=== PATIENT | female | born 1995 ===

== ENCOUNTER 2020-11-02 09:25 | Inpatient (IN) | payer BC ==
[2020-11-02] MEDS: Lactated Ringers 1,000 ML IV SCH ×3 (09:50→11:50)
[2020-11-02] MEDS ORDERED: Ampicillin 2 GM in Sodium Chloride 0.9% 100 ML IV ONE (10:03)
[2020-11-02] MEDS ORDERED: Ondansetron 4 MG/2 ML SDV IVPUSH PRN (10:03)
[2020-11-02] MEDS ORDERED: Misoprostol 200 MCG Tab PO PRN (10:03)
[2020-11-02] MEDS ORDERED: Nalbuphine 10 MG/1 ML Vial IVPUSH PRN (10:03)
[2020-11-02] MEDS ORDERED: Methylergonovine 0.2 MG/1 ML Amp IM PRN (10:03)
[2020-11-02] MEDS ORDERED: Sodium Chloride 0.9% 10 ML Syringe FLUSH PRN (10:03)
[2020-11-02] MEDS ORDERED: Tranexamic Acid 1,000 MG in Sodium Chloride 0.9% 100 ML IV PRN (10:03)
[2020-11-02] MEDS ORDERED: Butorphanol 1 MG/ML SDV IVPUSH PRN (10:03)
[2020-11-02] MEDS ORDERED: Sodium Chloride 0.9% 10 ML SDV IV PRN (10:03)
[2020-11-02] MEDS ORDERED: Carboprost Tromethamine 250 MCG/1 ML Amp IM PRN (10:03)
[2020-11-02] MEDS ORDERED: Water For Irrigation,Sterile 1,000 ML Container IRR PRN (10:03)
[2020-11-02] MEDS ORDERED: Sodium Chloride 0.9% 2.5 ML Syringe FLUSH PRN (10:03)
[2020-11-02] MEDS ORDERED: Lidocaine 1% 50 ML MDV INJECT PRN (10:03)
[2020-11-02] MEDS ORDERED: Oxytocin/0.9 % Sodium Chloride 30 UNIT/500 ML BAG IV SCH ×2 (10:15→14:30)
[2020-11-02] MEDS ORDERED: Ropivacaine HCl/PF 100 ML ONE (11:38)
[2020-11-02] MEDS ORDERED: fentaNYL 100 MCG/2 ML SDV ONE (11:38)
--- NOTE | 2020-11-02 12:07 | PCM.PREANE ---
Preanesthetic Assessment - Procedure Proposed Procedure: Late entry, Pt assessed prior to epidural placement at 1110. - Anesthesia/Transfusion/Family Hx Anesthesia History: Prior Anesthesia Without Reaction (sinus surgery, nasal septal surgery, T&A, [place] teeth, no anesthesia complications) Family History of Anesthesia Reaction: No Transfusion History: No Prior Transfusion(s) Additional History: Pt reports a compressed disk, possibly lumbar. States it's mild with no radiculopathy. - Review of Systems General: No Symptoms Pulmonary: No Symptoms Cardiovascular: No Symptoms Gastrointestinal: No Symptoms Neurological: No Symptoms Other: Reports: None - Physical Assessment NPO Status Date: 11/01/20 (last food yesterday) NPO Status Time: 22:00 (Clear liquids only going forward) Height: 1.79 m Weight: 82.554 kg ASA Class: 2 Mental Status: Alert & Oriented x3 Airway Class: Mallampati = 2 Dentition: Reports: Normal Dentition Thyro-Mental Finger Breadths: 4 Mouth Opening Finger Breadths: 3 ROM/Head Extension: Full Lungs: Clear to Auscultation, Normal Respiratory Effort Cardiovascular: Regular Rate, Regular Rhythm - Lab Values: Laboratory Last Values WBC 16.13 K/uL (4.0-11.0) H 11/02/20 09:40 RBC 3.99 M/uL (4.30-5.90) L 11/02/20 09:40 Hgb 12.7 g/dL (12.0-16.0) 11/02/20 09:40 Hct 37.0 % (36.0-46.0) 11/02/20 09:40 MCV 92.7 fL (80.0-98.0) 11/02/20 09:40 MCH 31.8 pg (27.0-32.0) 11/02/20 09:40 MCHC 34.3 g/dL (31.0-37.0) 11/02/20 09:40 RDW Std Deviation 45.1 fl (28.0-62.0) 11/02/20 09:40 RDW Coeff of Christiano 13 % (11.0-15.0) 11/02/20 09:40 Plt Count 220 K/uL (150-400) 11/02/20 09:40 MPV 11.90 fL (7.40-12.00) 11/02/20 09:40 Nucleated RBC % 0.0 /100WBC 11/02/20 09:40 Nucleated RBCs # 0 K/uL 11/02/20 09:40 SARS-CoV-2 RNA (CORINA) NEGATIVE (NEGATIVE) 11/02/20 08:35 - Allergies Allergies/Adverse Reactions: Allergies Allergy/AdvReac Type Severity Reaction Status Date / Time No Known Allergies Allergy Verified 11/02/20 10:02 - Acknowledgements Anesthesia Type Planned: Epidural Pt an Appropriate Candidate for the Planned Anesthesia: Yes Alternatives and Risks of Anesthesia Discussed w Pt/Guardian: Yes Pt/Guardian Understands and Agrees with Anesthesia Plan: Yes Additional Comments: Discussed epidural risks, benefits, alternatives, procedure, maintenance, and anesthesia coverage with patient. All questions answered and concerns addressed. Consent signed with RN witness. PreAnesthesia Questionnaire - CURRENT (IN HOUSE) MEDS Current Meds: Current Medications Butorphanol Tartrate (Stadol) 1 mg IVPUSH Q1H PRN PRN Reason: Pain Carboprost Tromethamine (Hemabate Ds) 250 mcg IM ASDIRECTED PRN PRN Reason: Post Hemorrhage Oxytocin/Sodium Chloride (Oxytocin 30 Unit/500 Ml-Ns) 30 unit in 500 mls @ 999 mls/hr IV TITRATE [facility] Tranexamic Acid 1,000 mg/ (Sodium Chloride) 110 mls @ 660 mls/hr IV ONETIME PRN PRN Reason: Bleeding Ampicillin Sodium 1 gm/ Sodium (Chloride) 50 mls @ 100 mls/hr IV Q4H [facility] Lactated Ringer's (Ringers, Lactated) 1,000 mls @ 150 mls/hr IV ASDIRECTED [facility] Last Admin: 11/02/20 10:40 Dose: 999 mls/hr Documented by: Lidocaine HCl (Xylocaine 1%) 50 ml INJECT ONETIME PRN PRN Reason: Laceration repair Methylergonovine Maleate (Methergine) 0.2 mg IM ASDIRECTED PRN PRN Reason: Post Hemorrhage Misoprostol (Cytotec) 200 mcg PO ONETIME PRN PRN Reason: Post Hemorrhage Nalbuphine HCl (Nubain) 10 mg IVPUSH Q1H PRN PRN Reason: Pain (severe 7-10) Ondansetron HCl (Zofran) 4 mg IVPUSH Q6H PRN PRN Reason: Nausea/Vomiting Sodium Chloride (Saline Flush) 10 ml FLUSH ASDIRECTED PRN PRN Reason: Keep Vein Open Sodium Chloride (Saline Flush) 2.5 ml FLUSH ASDIRECTED PRN PRN Reason: Keep Vein Open Sodium Chloride (Normal Saline) 10 ml IV ASDIRECTED PRN PRN Reason: IV Use Sterile Water (Sterile Water For Irrigation) 1,000 ml IRR ASDIRECTED PRN PRN Reason: delivery Discontinued Medications Fentanyl (Sublimaze) Confirm Administered Dose 200 mcg .ROUTE .STK-MED ONE Stop: 11/02/20 11:39 Ampicillin Sodium 2 gm/ Sodium (Chloride) 100 mls @ 200 mls/hr IV ONETIME ONE Stop: 11/02/20 10:32 Last Admin: 11/02/20 10:30 Dose: 200 mls/hr Documented by: Ropivacaine (Naropin 0.2%) Confirm Administered Dose 100 mls @ as directed .ROUTE .STK-MED ONE Stop: 11/02/20 11:39
--- NOTE | 2020-11-02 12:17 | PCM.SN.2 ---
- Free Text/Narrative Note: Anesthesia time [id number] Continuous labor epidural 1110- Bedside LDR 2, physical assessment and medical history with pt cooperation, consent signed with RN witness. 1120- Time out, BP, O2 NC, and pulse ox. on, sitting position. Sterile prep. with chlorhexidine, sterile drape. Sterile gloves, hat. 1127- Attempt #1 successful at L3-4, GLORIA with saline at 5.5 cm, catheter threaded to 10cm. No paresthesias. 1129- Negative to aspiration for both heme and CSF. Test dose negative. 1132- Secured with sterile tegaderm and cloth tape. 1144- Bolus with 8ml Ropivicaine 0.2% with 2mcg/ml fentanyl 1146- Continuous infusion started. Ropivicaine 0.2% with 2mcg/ml fentanyl at 8ml/hr, 4ml bolus 1200- level assessed, T12 with continued discomfort. 6ml clinician bolus. 1214- Reassessed, T9 Level and reports adequate pain control. VSS.
[2020-11-02] MEDS ORDERED: Ampicillin 1 GM in Sodium Chloride 0.9% 50 ML IV SCH (14:15)
[2020-11-02] MEDS ORDERED: Terbutaline 1 MG/ML SDV SUBCUT PRN (14:29)
[2020-11-02] MEDS ORDERED: Ibuprofen 400 MG Tab PO PRN (16:26)
[2020-11-02] MEDS ORDERED: oxyCODONE 5 MG Tab PO PRN (16:26)
[2020-11-02] MEDS ORDERED: Ibuprofen 800 MG Tab PO PRN (16:26)
[2020-11-02] MEDS ORDERED: Bisacodyl 10 MG Supp RECTAL PRN (16:26)
[2020-11-02] MEDS ORDERED: Lanolin 100% Cream 7 GM Tube TOP PRN (16:26)
[2020-11-02] MEDS ORDERED: Acetaminophen 500 MG Tab PO PRN (16:26)
--- NOTE | 2020-11-02 16:35 | PCM.OPNOTE ---
- General Post-Op/Procedure Note Date of Surgery/Procedure: 11/02/20 Operative Procedure(s): /2nd MLL repaired Findings: Viable female APGARs 8, 9 weight 3380 gm. Spontaneous delivery intact placenta with 3V cord Pre Op Diagnosis: 37/6 week IUP. SROM. GBBS + Post-Op Diagnosis: Same Anesthesia Technique: Epidural Primary Surgeon: Catherine Holbrook EBL in mLs: 300 Complications: none known Condition: Good Free Text/Narrative:: Dictation [id number]
[2020-11-02] MEDS: Acetaminophen 500 MG Tab PO PRN ×2 (17:23→23:40)
[2020-11-02] MEDS: Witch Hazel Medicated Pads 40/Jar TOP PRN (17:26)
[2020-11-02] MEDS: Benzocaine/Menthol 20%-0.5% Spray 78 GM Cannister TOP PRN (17:27)
--- NOTE | 2020-11-02 19:42 | OR ---
SURGEON: Catherine Holbrook M.D. DATE OF PROCEDURE: 11/02/2020 PREOPERATIVE DIAGNOSES: 1. A 37-6/7 weeks' intrauterine . 2. Spontaneous rupture of membranes. 3. Group B strep positive. POSTOPERATIVE DIAGNOSES: 1. A 37-6/7 weeks' intrauterine . 2. Spontaneous rupture of membranes. 3. Group B strep positive. PROCEDURE: Spontaneous vaginal delivery, second-degree midline laceration repaired. PRIMARY SURGEON: Catherine Holbrook MD ANESTHESIA: Epidural. ESTIMATED BLOOD LOSS: 300 mL. COMPLICATIONS: None known. FINDINGS: Viable female. score of 8 at one minute and 9 at five minutes. Weight of 3280 g. Spontaneous delivery, intact placenta, 3-vessel cord. DISPOSITION: to nursery, mom in LDRP. PROCEDURE DETAILS: Milagro is a 25-year-old, G1, P0, at 37-6/7 weeks' gestational age, who presented on the morning of 11/02/2020 with ruptured membranes shortly after 6 a.m., clear fluid had been returned. Upon her presentation, she was found to be grossly ruptured. heart tones category 1. She was found to be 3 cm, 80% effaced, minus 2 station. Therefore, she was admitted, routine labs drawn, IV hydration was initiated. She is COVID negative. The patient was admitted, and she received ampicillin prophylaxis for group B strep positive status. The patient became increasingly uncomfortable, progressed fairly quickly to 8 cm. Underwent regional anesthesia in the form of epidural, became more comfortable, and progressed to complete. Shortly after noon, 0 station. She attempted initial pushing efforts, however, was not very successful, so allowed her to become more comfortable with her epidural and continue to labor. During this time, the contractions did seem to space out somewhat, so therefore Pitocin augmentation was initiated. Shortly before 3 p.m. She had regular contractions, feeling increased pressure, was found to be +2 station, began pushing efforts. The patient pushed adequately, was able to deliver to a +3 station. I was called for delivery. Upon my arrival, the patient was placed in modified dorsal lithotomy position, prepped and draped in usual aseptic manner. Continued with pushing efforts, able to deliver the infant's head atraumatically spontaneously, followed by anterior shoulder, posterior shoulder, and remainder of the body without difficulty. The 's oropharynx and nares were bulb suctioned. Cord was clamped x2 and cut. Infant was handed off to attending nursery staff. Cord arterial, cord venous, cord blood sampling obtained. Light pressure was applied while the placenta was delivered spontaneously intact. Vigorous fundal uterine massage was then applied while 30 units of Pitocin was delivered in 500 mL of IV fluid. Upon inspection of cervix, vaginal sidewall, and perineum, there was found to be a second-degree midline laceration. This was repaired using 3-0 Vicryl in the usual fashion. Hemostasis appeared evident. Sponge count, instrument count, and needle count were correct. The patient remained in LDRP, infant to nursery. JIMENEZ / KIRAN /[id number] MTDD
[2020-11-02] MEDS: Docusate Sodium 100 MG Cap PO PRN (21:51)
[2020-11-03] MEDS: Acetaminophen 500 MG Tab PO PRN ×3 (06:03→17:31)
--- NOTE | 2020-11-03 08:17 | PCM.PNPP ---
- General Info Date of Service: 11/03/20 Functional Status: Reports: Pain Controlled, Tolerating Diet, Ambulating, Urinating - Review of Systems General: Reports: Fatigue. Denies: Fever, Weakness Pulmonary: Denies: Shortness of Breath Cardiovascular: Denies: Chest Pain, Palpitations, Lightheadedness Gastrointestinal: Denies: Abdominal Pain, Nausea, Vomiting Genitourinary: Denies: Flank Pain Musculoskeletal: Reports: No Symptoms Skin: Reports: No Symptoms Neurological: Reports: No Symptoms Psychiatric: Reports: No Symptoms - General Info Date of Service: 11/03/20 - Patient Data Vital Signs - Most Recent: Last Vital Signs Temp 36.4 C 11/03/20 06:00 Pulse 83 11/03/20 06:00 Resp 17 11/03/20 06:00 BP 118/59 L 11/03/20 06:00 Pulse Ox 97 11/03/20 06:00 Weight - Most Recent: 82.554 kg Lab Results - Last 24 Hours: Laboratory Results - last 24 hr 11/02/20 11/02/20 11/02/20 Range/Units 08:35 09:40 09:40 WBC 16.13 H (4.0-11.0) K/uL RBC 3.99 L (4.30-5.90) M/uL Hgb 12.7 (12.0-16.0) g/dL Hct 37.0 (36.0-46.0) % MCV 92.7 (80.0-98.0) fL MCH 31.8 (27.0-32.0) pg MCHC 34.3 (31.0-37.0) g/dL RDW Std Deviation 45.1 (28.0-62.0) fl RDW Coeff of Christiano 13 (11.0-15.0) % Plt Count 220 (150-400) K/uL MPV 11.90 (7.40-12.00) fL Nucleated RBC % 0.0 /100WBC Nucleated RBCs # 0 K/uL Cord ABG pH (7.18-7.38) Cord ABG Base Excess (-10--2) Cord VBG pH (7.25-7.45) Cord VBG Base Excess (-10--2) SARS-CoV-2 RNA ([place]) NEGATIVE (NEGATIVE) Blood Type A POSITIVE Antibody Screen POSITIVE Prewarmed Antibody Srcn NEGATIVE Antibody Identification Cancelled Cold Antibody Screen POSITIVE 11/02/20 11/03/20 Range/Units 16:00 05:45 WBC (4.0-11.0) K/uL RBC (4.30-5.90) M/uL Hgb 13.6 (12.0-16.0) g/dL Hct 40.0 (36.0-46.0) % MCV (80.0-98.0) fL MCH (27.0-32.0) pg MCHC (31.0-37.0) g/dL RDW Std Deviation (28.0-62.0) fl RDW Coeff of Christiano (11.0-15.0) % Plt Count (150-400) K/uL MPV (7.40-12.00) fL Nucleated RBC % /100WBC Nucleated RBCs # K/uL Cord ABG pH 7.298 (7.18-7.38) Cord ABG Base Excess -6 (-10--2) Cord VBG pH 7.314 (7.25-7.45) Cord VBG Base Excess -6 (-10--2) SARS-CoV-2 RNA ([place]) (NEGATIVE) Blood Type Antibody Screen Prewarmed Antibody Srcn Antibody Identification Cold Antibody Screen Med Orders - Current: Current Medications Acetaminophen (Tylenol Extra Strength) 500 mg PO Q4H PRN PRN Reason: Pain Acetaminophen (Tylenol Extra Strength) 1,000 mg PO Q4H PRN PRN Reason: Pain Last Admin: 11/03/20 06:03 Dose: 1,000 mg Documented by: Benzocaine/Menthol (Dermoplast Pain Relief 20%-0.5% [place]) 78 gm TOP ASDIRECTED PRN PRN Reason: Perineal Comfort Measure Last Admin: 11/02/20 17:27 Dose: 1 canister Documented by: Bisacodyl (Dulcolax) 10 mg RECTAL ONETIME PRN PRN Reason: Constipation Carboprost Tromethamine (Hemabate Ds) 250 mcg IM ASDIRECTED PRN PRN Reason: Post Hemorrhage Docusate Sodium (Colace) 100 mg PO BID PRN PRN Reason: Constipation Last Admin: 11/02/20 21:51 Dose: 100 mg Documented by: Emollient Ointment (Lansinoh Hpa) 0 gm TOP ASDIRECTED PRN PRN Reason: Sore Nipples Last Admin: 11/02/20 17:28 Dose: 7 g Documented by: Oxytocin/Sodium Chloride (Oxytocin 30 Unit/500 Ml-Ns) 30 unit in 500 mls @ 999 mls/hr IV TITRATE [facility] Last Infusion: 11/02/20 16:25 Dose: 500 mls/hr Documented by: Tranexamic Acid 1,000 mg/ (Sodium Chloride) 110 mls @ 660 mls/hr IV ONETIME PRN PRN Reason: Bleeding Lactated Ringer's (Ringers, Lactated) 1,000 mls @ 150 mls/hr IV ASDIRECTED [facility] Last Admin: 11/02/20 11:50 Dose: 150 mls/hr Documented by: Oxytocin/Sodium Chloride (Oxytocin 30 Unit/500 Ml-Ns) 30 unit in 500 mls @ 2 mls/hr IV TITRATE [facility]; Protocol Last Titration: 11/02/20 16:08 Dose: 0 munits/min, 0 mls/hr Documented by: Ibuprofen (Motrin) 400 mg PO Q4H PRN PRN Reason: Pain Ibuprofen (Motrin) 800 mg PO Q6H PRN PRN Reason: Pain Lidocaine HCl (Xylocaine 1%) 50 ml INJECT ONETIME PRN PRN Reason: Laceration repair Methylergonovine Maleate (Methergine) 0.2 mg IM ASDIRECTED PRN PRN Reason: Post Hemorrhage Nalbuphine HCl (Nubain) 10 mg IVPUSH Q1H PRN PRN Reason: Pain (severe 7-10) Ondansetron HCl (Zofran) 4 mg IVPUSH Q6H PRN PRN Reason: Nausea/Vomiting Oxycodone HCl (Oxycodone) 5 mg PO Q2H PRN PRN Reason: Pain Sodium Chloride (Saline Flush) 10 ml FLUSH ASDIRECTED PRN PRN Reason: Keep Vein Open Sodium Chloride (Saline Flush) 2.5 ml FLUSH ASDIRECTED PRN PRN Reason: Keep Vein Open Sodium Chloride (Normal Saline) 10 ml IV ASDIRECTED PRN PRN Reason: IV Use Sterile Water (Sterile Water For Irrigation) 1,000 ml IRR ASDIRECTED PRN PRN Reason: delivery Terbutaline Sulfate (Brethine) 0.25 mg SUBCUT ASDIRECTED PRN PRN Reason: Tacysystole Carlos Farida (Tucks) 1 pad TOP ASDIRECTED PRN PRN Reason: comfort care Last Admin: 11/02/20 17:26 Dose: 1 tub Documented by: Discontinued Medications Butorphanol Tartrate (Stadol) 1 mg IVPUSH Q1H PRN PRN Reason: Pain Fentanyl (Sublimaze) Confirm Administered Dose 200 mcg .ROUTE .STK-MED ONE Stop: 11/02/20 11:39 Ampicillin Sodium 2 gm/ Sodium (Chloride) 100 mls @ 200 mls/hr IV ONETIME ONE Stop: 11/02/20 10:32 Last Admin: 11/02/20 10:30 Dose: 200 mls/hr Documented by: Ampicillin Sodium 1 gm/ Sodium (Chloride) 50 mls @ 100 mls/hr IV Q4H [facility] Last Admin: 11/02/20 14:35 Dose: 100 mls/hr Documented by: Ropivacaine (Naropin 0.2%) Confirm Administered Dose 100 mls @ as directed .ROUTE .STK-MED ONE Stop: 11/02/20 11:39 Misoprostol (Cytotec) 200 mcg PO ONETIME PRN PRN Reason: Post Hemorrhage - Interaction Support Person: - Recovery Exam Fundal Tone: Firm Fundal Level: At Umbilicus Fundal Placement: Midline Lochia Amount: Small Lochia Color: Rubra/Red Perineum Description: Intact, Minimal Bruising/Swelling Episiotomy/Laceration: Approximated Bladder Status: Voiding - Exam General: Alert, Oriented Lungs: Normal Respiratory Effort Cardiovascular: Regular Rate, Regular Rhythm GI/Abdominal Exam: Normal Bowel Sounds, Soft Extremities: Pedal Edema (trace). No: Carl's Sign Skin: Warm, Dry, Intact Neurological: No New Focal Deficit Psy/Mental Status: Alert, Normal Affect, Normal Mood - Problem List & Annotations (1) Vaginal delivery SNOMED Code(s): 270269364 Code(s): O80 - ENCOUNTER FOR FULL-TERM UNCOMPLICATED DELIVERY Status: Acute Current Visit: Yes - Problem List Review Problem List Initiated/Reviewed/Updated: Yes - My Orders Last 24 Hours: My Active Orders 11/02/20 09:40 RPR (SYPHILIS SERO) W/ RFLX [REF] Routine 11/02/20 10:03 Patient Status [ADT] Routine Peripheral IV Care [RC] . DIRECTED Vital Signs [RC] PER UNIT ROUTINE Carboprost Tromethamine [Hemabate DS] 250 mcg IM ASDIRECTED PRN Lidocaine 1% [Xylocaine 1%] 50 ml INJECT ONETIME PRN Methylergonovine [Methergine] 0.2 mg IM ASDIRECTED PRN Nalbuphine [Nubain] 10 mg IVPUSH Q1H PRN Ondansetron [Zofran] 4 mg IVPUSH Q6H PRN Sodium Chloride 0.9% [Normal Saline] 10 ml IV ASDIRECTED PRN Sodium Chloride 0.9% [Saline Flush] 10 ml FLUSH ASDIRECTED PRN Sodium Chloride 0.9% [Saline Flush] 2.5 ml FLUSH ASDIRECTED PRN Tranexamic Acid [Cyklokapron] 1,000 mg Sodium Chloride 0.9% [Normal Saline] 100 ml IV ONETIME Water For Irrigation,Sterile [Sterile Water for Irrigation] 1,000 ml IRR ASDIRECTED PRN Peripheral IV Insertion Adult [OM.PC] Routine Resuscitation Status Routine 11/02/20 10:15 Lactated Ringers [Ringers, Lactated] 1,000 ml IV ASDIRECTED Oxytocin/0.9 % Sodium Chloride [Oxytocin 30 Unit/500 ML-NS] 30 unit in 500 ml IV TITRATE 11/02/20 14:29 Bedrest Bathroom Privileges [RC] ASDIRECTED Communication Order [RC] ASDIRECTED Communication Order [RC] ASDIRECTED Oxygen Therapy [RC] ASDIRECTED Terbutaline [Brethine] 0.25 mg SUBCUT ASDIRECTED PRN 11/02/20 14:30 Oxytocin/0.9 % Sodium Chloride [Oxytocin 30 Unit/500 ML-NS] 30 unit in 500 ml IV TITRATE 11/02/20 Dinner Regular Diet [DIET] 11/02/20 16:26 Notify Provider Vital Signs [RC] ASDIRECTED Acetaminophen [Tylenol Extra Strength] 1,000 mg PO Q4H PRN Acetaminophen [Tylenol Extra Strength] 500 mg PO Q4H PRN Benzocaine/Menthol [Dermoplast Pain Relief 20%-0.5% Jeddo] 78 gm TOP ASDIRECTED PRN Docusate Sodium [Colace] 100 mg PO BID PRN Ibuprofen [Motrin] 400 mg PO Q4H PRN Ibuprofen [Motrin] 800 mg PO Q6H PRN Lanolin [Lansinoh HPA] See Dose Instructions TOP ASDIRECTED PRN bisacodyL [Dulcolax] 10 mg RECTAL ONETIME PRN oxyCODONE 5 mg PO Q2H PRN witch Farida [Tucks] 1 pad TOP ASDIRECTED PRN 11/02/20 16:27 Patient Status [ADT] Routine May Shower [RC] ASDIRECTED Up ad Teresa [RC] ASDIRECTED Vital Signs [RC] PER UNIT ROUTINE Assess Lochia [WOMSER] Per Unit Routine Assess Uterine Involution [WOMSER] Per Unit Routine Perineal Care [OM.PC] Per Unit Routine Peripheral IV Discontinue [OM.PC] Routine Sitz Bath [OM.PC] Per Unit Routine - Assessment Assessment:: PPD 1 status post GBBS + - Plan Plan:: Doing well overall, labs and VS are reassuring> Continue cares.
--- NOTE | 2020-11-03 08:28 | PCM48HPAN ---
Post Anesthesia Note - EVALUATION WITHIN 48HRS OF ANESTHETIC Vital Signs in Normal Range: Yes Patient Participated in Evaluation: Yes Respiratory Function Stable: Yes Airway Patent: Yes Cardiovascular Function Stable: Yes Hydration Status Stable: Yes Pain Control Satisfactory: Yes Nausea and Vomiting Control Satisfactory: Yes Mental Status Recovered: Yes Vital Signs: Last Vital Signs Temp 36.4 C 11/03/20 06:00 Pulse 83 11/03/20 06:00 Resp 17 11/03/20 06:00 BP 118/59 L 11/03/20 06:00 Pulse Ox 97 11/03/20 06:00 - COMMENTS/OBSERVATIONS Free Text/Narrative:: Patient is sitting up , and appears to be in no acute distress. She has a history of neck, and chronic back pain that has not been exacerbated from epidural insertion. There were no apparent anesthetic complications at this time. Discharge from Anesthesia Service.
[2020-11-03] MEDS: Docusate Sodium 100 MG Cap PO PRN ×2 (11:06→21:56)
[2020-11-03] MEDS: Witch Hazel Medicated Pads 40/Jar TOP PRN (21:56)
[2020-11-04] MEDS: Acetaminophen 500 MG Tab PO PRN ×2 (01:18→09:04)
--- NOTE | 2020-11-04 08:08 | PCM.PNPP ---
- General Info Date of Service: 11/04/20 Functional Status: Reports: Pain Controlled, Tolerating Diet, Ambulating, Urinating - Review of Systems General: Reports: Fatigue. Denies: Fever, Weakness Pulmonary: Denies: Shortness of Breath Cardiovascular: Denies: Chest Pain, Palpitations, Lightheadedness Gastrointestinal: Denies: Abdominal Pain, Nausea, Vomiting Genitourinary: Denies: Flank Pain Musculoskeletal: Reports: No Symptoms Skin: Reports: No Symptoms Neurological: Reports: No Symptoms Psychiatric: Reports: No Symptoms - General Info Date of Service: 11/04/20 - Patient Data Vital Signs - Most Recent: Last Vital Signs Temp 36.1 C 11/03/20 21:30 Pulse 90 11/03/20 21:30 Resp 19 11/03/20 21:30 BP 128/73 11/03/20 21:30 Pulse Ox 95 11/03/20 21:30 Weight - Most Recent: 82.554 kg Med Orders - Current: Current Medications Acetaminophen (Tylenol Extra Strength) 500 mg PO Q4H PRN PRN Reason: Pain Acetaminophen (Tylenol Extra Strength) 1,000 mg PO Q4H PRN PRN Reason: Pain Last Admin: 11/04/20 01:18 Dose: 1,000 mg Documented by: Benzocaine/Menthol (Dermoplast Pain Relief 20%-0.5% [place]) 78 gm TOP ASDIRECTED PRN PRN Reason: Perineal Comfort Measure Last Admin: 11/02/20 17:27 Dose: 1 canister Documented by: Bisacodyl (Dulcolax) 10 mg RECTAL ONETIME PRN PRN Reason: Constipation Docusate Sodium (Colace) 100 mg PO BID PRN PRN Reason: Constipation Last Admin: 11/03/20 21:56 Dose: 100 mg Documented by: Emollient Ointment (Lansinoh Hpa) 0 gm TOP ASDIRECTED PRN PRN Reason: Sore Nipples Last Admin: 11/02/20 17:28 Dose: 7 g Documented by: Oxytocin/Sodium Chloride (Oxytocin 30 Unit/500 Ml-Ns) 30 unit in 500 mls @ 2 mls/hr IV TITRATE [facility]; Protocol Last Titration: 11/02/20 16:08 Dose: 0 munits/min, 0 mls/hr Documented by: Ibuprofen (Motrin) 400 mg PO Q4H PRN PRN Reason: Pain Ibuprofen (Motrin) 800 mg PO Q6H PRN PRN Reason: Pain Oxycodone HCl (Oxycodone) 5 mg PO Q2H PRN PRN Reason: Pain Sodium Chloride (Saline Flush) 10 ml FLUSH ASDIRECTED PRN PRN Reason: Keep Vein Open Sodium Chloride (Saline Flush) 2.5 ml FLUSH ASDIRECTED PRN PRN Reason: Keep Vein Open Sodium Chloride (Normal Saline) 10 ml IV ASDIRECTED PRN PRN Reason: IV Use Terbutaline Sulfate (Brethine) 0.25 mg SUBCUT ASDIRECTED PRN PRN Reason: Tacysystole Witch Farida (Tucks) 1 pad TOP ASDIRECTED PRN PRN Reason: comfort care Last Admin: 11/03/20 21:56 Dose: 1 pad Documented by: Discontinued Medications Butorphanol Tartrate (Stadol) 1 mg IVPUSH Q1H PRN PRN Reason: Pain Carboprost Tromethamine (Hemabate Ds) 250 mcg IM ASDIRECTED PRN PRN Reason: Post Hemorrhage Fentanyl (Sublimaze) Confirm Administered Dose 200 mcg .ROUTE .STK-MED ONE Stop: 11/02/20 11:39 Oxytocin/Sodium Chloride (Oxytocin 30 Unit/500 Ml-Ns) 30 unit in 500 mls @ 999 mls/hr IV TITRATE [facility] Last Infusion: 11/02/20 16:25 Dose: 500 mls/hr Documented by: Tranexamic Acid 1,000 mg/ (Sodium Chloride) 110 mls @ 660 mls/hr IV ONETIME PRN PRN Reason: Bleeding Ampicillin Sodium 2 gm/ Sodium (Chloride) 100 mls @ 200 mls/hr IV ONETIME ONE Stop: 11/02/20 10:32 Last Admin: 11/02/20 10:30 Dose: 200 mls/hr Documented by: Ampicillin Sodium 1 gm/ Sodium (Chloride) 50 mls @ 100 mls/hr IV Q4H [facility] Last Admin: 11/02/20 14:35 Dose: 100 mls/hr Documented by: Lactated Ringer's (Ringers, Lactated) 1,000 mls @ 150 mls/hr IV ASDIRECTED [facility] Last Admin: 11/02/20 11:50 Dose: 150 mls/hr Documented by: Ropivacaine (Naropin 0.2%) Confirm Administered Dose 100 mls @ as directed .ROUTE .Toolwi-MED ONE Stop: 11/02/20 11:39 Lidocaine HCl (Xylocaine 1%) 50 ml INJECT ONETIME PRN PRN Reason: Laceration repair Methylergonovine Maleate (Methergine) 0.2 mg IM ASDIRECTED PRN PRN Reason: Post Hemorrhage Misoprostol (Cytotec) 200 mcg PO ONETIME PRN PRN Reason: Post Hemorrhage Nalbuphine HCl (Nubain) 10 mg IVPUSH Q1H PRN PRN Reason: Pain (severe 7-10) Ondansetron HCl (Zofran) 4 mg IVPUSH Q6H PRN PRN Reason: Nausea/Vomiting Sterile Water (Sterile Water For Irrigation) 1,000 ml IRR ASDIRECTED PRN PRN Reason: delivery - Infant Interaction Support Person: - Recovery Exam Fundal Tone: Firm Fundal Level: 1 Fingerbreadths Below Umbilicus Fundal Placement: Midline Lochia Amount: Scant Lochia Color: Rubra/Red Perineum Description: Intact, Minimal Bruising/Swelling Episiotomy/Laceration: Approximated Bladder Status: Voiding Urinary Elimination: Voided - Exam General: Alert, Oriented Lungs: Normal Respiratory Effort Cardiovascular: Regular Rate, Regular Rhythm GI/Abdominal Exam: Normal Bowel Sounds, Soft Extremities: Pedal Edema (trace). No: Carl's Sign Skin: Warm, Dry, Intact Neurological: No New Focal Deficit Psy/Mental Status: Alert, Normal Affect, Normal Mood - Problem List & Annotations (1) Vaginal delivery SNOMED Code(s): 669238417 Code(s): O80 - ENCOUNTER FOR FULL-TERM UNCOMPLICATED DELIVERY Status: Acute Current Visit: Yes - Problem List Review Problem List Initiated/Reviewed/Updated: Yes - My Orders Last 24 Hours: My Active Orders 11/04/20 08:06 Ready for Discharge [RC] PER UNIT ROUTINE - Assessment Assessment:: PPD 2 status post GBBS + - Plan Plan:: Patient continues to do well. VS are stable. She would like to go home today. Discharge instructions reviewed. Follow up at [facility] 4 weeks. Discharge to home.
[2020-11-04] MEDS: Witch Hazel Medicated Pads 40/Jar TOP PRN (08:25)
[2020-11-04] MEDS: Benzocaine/Menthol 20%-0.5% Spray 78 GM Cannister TOP PRN (08:25)
== END 2020-11-04 14:35 | disposition home or self-care (01) | DRG 560 ==
LOC: MW.OB 09:25 → MW.OBCHECK 09:25 → MW.OB 10:03 → MW.OBCHECK 10:03 → OBSVTOIN 16:07 → MW.OB 20:00
PROVIDERS: ADMIT Obstetrics & Gynecology; ATTEND Obstetrics & Gynecology
PROC: 10E0XZZ Delivery of Products of Conception, External Approach (ICD-10-PCS; principal; 2020-11-02)
PROC: 3E0R3BZ Introduction of Anesthetic Agent into Spinal Canal, Percutaneous Approach (ICD-10-PCS; 2020-11-02)
PROC: 00HU33Z Insertion of Infusion Device into Spinal Canal, Percutaneous Approach (ICD-10-PCS; 2020-11-02)
PROC: 0KQM0ZZ Repair Perineum Muscle, Open Approach (ICD-10-PCS; 2020-11-02)
DX: O99.824 Streptococcus B carrier state complicating childbirth (principal); Z3A.37 37 weeks gestation of pregnancy; Z37.0 Single live birth; O70.1 Second degree perineal laceration during delivery; Z20.822 Contact with and (suspected) exposure to COVID-19
CPT/HCPCS: 01967; 36415; 51702; 59025; 59409; 82803; 85014; 85018; 85027; 86156; 86592; 86850; 86900; 86901; A9270-GY; J0290; J2590; J2795; J3010; J7050; J7120; U0002